=== PATIENT | male | born 1950 | race African-American/Black ===

== ENCOUNTER 2017-06-09 15:06 | Emergency (ER) | payer BC, MEDICAID ==
[~2017-06-09] VITALS: Ht 175.3 cm; Wt 75.0 kg
[2017-06-09 17:05] LABS: *AMPHETAMINES SCREEN URINE NEGATIVE (NEGATIVE); *BARBITURATES SCREEN URINE NEGATIVE (NEGATIVE); *BENZODIAZEPINES SCREEN URINE NEGATIVE (NEGATIVE)
[2017-06-09 17:06] LABS: *COCAINE SCREEN URINE NEGATIVE (NEGATIVE); CANNABINOID URINE SCREEN NEGATIVE (NEGATIVE); METHADONE URINE SCREEN NEGATIVE (NEGATIVE); OPIATES URINE SCREEN NEGATIVE (NEGATIVE); PHENCYCLIDINE URINE SCREEN NEGATIVE (NEGATIVE)
[2017-06-09 18:16] VITALS: BP 124/81
== END 2017-06-09 18:17 | disposition home or self-care (01) ==
LOC: ER 15:36
DX: S06.0X0A Concussion without loss of consciousness, initial encounter (principal); R51 Headache; Y92.410 Unspecified street and highway as the place of occurrence of the external cause
CPT/HCPCS: 70450; 80305; 99285